=== PATIENT | female | born 1955 | race Caucasian/White ===

== ENCOUNTER 2018-11-07 21:48 | Inpatient (IN) ==
[2018-11-07 21:59] VITALS: BMI 23.7
--- NOTE | 2018-11-07 22:38 | RAD ---
Chest, 2 views Indication: Cough Comparison: None Findings: The cardiac silhouette is unremarkable. There is patchy infiltrate within the right upper and lower lobes. The left lung is essentially clear, aside from a small calcified granuloma at the base. No pleural effusion or pneumothorax. Impression: Right upper and lower lobe infiltrate most compatible with multifocal pneumonia. Recommend radiographic follow-up to resolution. Reported By:
--- NOTE | 2018-11-07 22:54 | DR.URIAD ---
HPI Time Seen Time Seen by Provider: 11/07/18 22:31 PCP Primary Care Physician: DANYEL HPI Comment HPI Comment: PATIENT IS A 63YR OLD WHITE FEMALE WITH HISTORY HYPERTENSION AND COPD IS IN ED WITH INCREASING RESPIRATORY DIASTRESS, PRODUCTIVE COUGHT AND CHEST TIGHTNESS. SHE WAS RUNNING FEVER AND CHILLS AT HOME. TODAY, SHE IS WEAK AND DRAIN OF ENERGY. SHE HAD PNEUMONIA PREVIOUSLY AND THESE SYMPTOMS ARE SIMILAR TO THE PNEUMONIA SYMPTOMS. CHEST PAIN IS TIGHTNESS, NON RADIATIATING. PATIENT HAVE SOME MUSCLE DISCOMFORT. SHE HAS HOME OXYGEN, O2 SAT IS FALLING DOWN TO 80S ON THE 2L /M OXYGEN ON HER IN ED. SHE ALSO HAVE DUO NEB AT HOME. THESE DID NOT HELP HER SYMPTOMS. SHE IS GETTING WORSE. DR. MONTAÑO IN [place], [place] IS PATIENTS PCP. Complaint Chief Complaint Doctors Comments: INCREASING SOB, COUGH AND CHEST TIGHTNESS TOMES 2 DAYS. Chief Complaint:: PT STATES" I HAVE BEEN COUGHING AND I FEEL LIKE I CAN'T GET A DEEP BREATH I NEED A XRAY TO MAKE SURE I DON'T HAVE PNEUMONIA" Reviewed Nurses Notes Reviewed: Yes Source History Provided: Patient Mode of Arrival Mode of Arrival: Ambulatory Timing Onset of Chief Complaint: 11/05/18 Context Recent Treated Infections: None History of Respiratory: None Quality Quality of Cough: Productive and Yellow Rhinorrhea: Green Associated Signs and Symptoms Other Signs and Symptoms: Chills, Cough, Decreased Oral Intake, Fever, Myalgias, Retractions, Shortness of Breath, URI and Wheeze PMH PMH Past Medical History: Yes Past Medical History: COPD and Hypertension Past Surgical History: Yes Surgical History: Appendectomy and Cholecystectomy Family History History of Family Medical Conditions: Yes Family Medical History: Cancer Social History Does patient currently use any type of tobacco product: Yes Have you used tobacco products in the last 12 months: Yes Type of Tobacco Use: Cigarettes Does any household member use tobacco: Yes Alcohol Use: None Do you use any recreational Drugs:: No Lives With: Family Lives Where: Home infectious screening In the last 2 months have you had wt loss of >10#?: NO Have you had fever, night sweats or hemotysis?: No Have you traveled outside the country in the last 6 months?: No Isolation: Standard PE Vital Signs Vitals: Temperature 98.4 F Pulse Rate [Left] 85 Pulse Rate 90 Respiratory Rate 22 Blood Pressure [Right Arm] 167/78 Blood Pressure 150/70 O2 Sat by Pulse Oximetry 91 General Limitations: No Limitations General Appearance: Alert and In Distress Head Head Exam: Normal Inspection, Atraumatic and Normocephalic Eyes Eye exam: PERRL and EOMI; negative Scleral Icterus and Conjunctival Injection ENT ENT Exam: Normal Exam, Normal Oropharynx, Normal External Ear Exam and Mucous Membranes Moist External Ear Exam: Normal External Inspection; negative Mastoid Tenderness, Pain with Movement and External Tenderness TM/Canal Exam: Bilateral: Normal Nose Exam: Normal Nose Exam; negative Sinus Tenderness, Nasal Deviation and Septal Hematoma Mouth Exam: Normal Inspection; negative Lip Swelling, Tongue Elevation and Tongue Swelling Throat Exam: Tonsillar Erythema; negative Tonsillomegaly and Tonsillar Exudate Neck Neck Exam: Normal Inspection and Full ROM; negative Trachea Midline, Tenderness, Meningismus and Lymphadenopathy Chest Chest Inspection: Normal Inspection and Symmetric Chest Wall Rise; negative Tenderness and Rash Respiratory Respiratory Exam: Normal Lung Sounds Bilat and Respiratory Distress Respiratory Exam: Bilateral: Wheezing and Bilateral: Rhonchi, Upper: Wheezing and Lower: Wheezing and Lower: Rhonchi Cardiovascular Cardiovascular Exam: Regular Rate and Normal Rhythm; negative Systolic Murmur, Diastolic Murmur, Rubs and Gallop Abdominal Exam Abdominal Exam: Normal Inspection, Normal Bowel Sounds and Soft; negative Tenderness, Organomegaly and Mass Extremeties Extremities Exam: Normal Inspection and Normal Capillary Refill; negative Tenderness Back Back Exam: Normal Inspection; negative Tenderness, (R) CVA Tenderness, (L) CVA Tenderness, Muscle Spasm, Paraspinal Tenderness and Vertebral Tenderness Neurologic Neurological Exam: Alert, Oriented X3 and CN II-XII Intact; negative Motor Sensory Deficit Psychiatric Psychiatric Exam: Normal Affect and Normal Mood Skin Skin Exam: Warm, Dry, Intact and Normal Color; negative Rash and Erythema MDM Additional Information Additional Information Obtained From: Family and PCP Differential Diagnosis Differential Diagnosis: Pneumonia, Sinsusitis and URI (SINUSITIS, RESP DISTRESS, COPD EXACERBATION.) COURSE Treatment Treatment: SEE ORDERS. 01:00AM : ROCEPHIN IGM IV IN ED. Consultation Consultation Comments: 01:24AM : DISCUSS PATIENT WITH DR. BRYANT. HE WILL ADMIT PATIENT. TIME SPEND ON PHONE 2MIN. PRELIMINARY ORDERS FOR ADMIT ARE DONE ALSO BY ME. Education/Counseling Education/Counseling: Patient Educated On: Diagnosis and Needs for Follow Up ROR Labs Reviewed Laboratory Results Reviewed?: Yes Result Diagrams: 11/07/18 22:42 11/07/18 22:42 Laboratory: WBC 11.3 X10^3/uL (3.6-10.0) H 11/07/18 22:42 RBC 3.68 X10^6/uL (3.5-5.4) 11/07/18 22:42 Hgb 11.7 g/dL (12.0-16.0) L 11/07/18 22:42 Hct 34.3 % (36.0-47.0) L 11/07/18 22:42 MCV 93.4 fL (80.0-100.0) 11/07/18 22:42 MCH 31.9 pg (27.0-34.0) 11/07/18 22:42 MCHC 34.1 g/dL (33.0-35.0) 11/07/18 22:42 RDW 13.8 % (11.6-16.5) 11/07/18 22:42 Plt Count 325 X10^3/uL (150.0-450.0) 11/07/18 22:42 MPV 7.1 fL (7.4-11.0) L 11/07/18 22:42 Neut % (Auto) 78.1 % (42.0-75.0) H 11/07/18 22:42 Lymph % (Auto) 12.4 % (21.0-51.0) L 11/07/18 22:42 [place] % (Auto) 8.5 % (0.0-13.0) 11/07/18 22:42 Eos % (Auto) 0.6 % (0.9-2.9) L 11/07/18 22:42 Baso % (Auto) 0.4 % (0.2-1.0) 11/07/18 22:42 Neut # (Auto) 8.8 x10^3/uL (2.2-4.8) H 11/07/18 22:42 Lymph # (Auto) 1.4 X10^3/uL (1.3-2.9) 11/07/18 22:42 [place] # (Auto) 1.0 x10^3/uL (0.3-0.8) H 11/07/18 22:42 Eos # (Auto) 0.1 x10^3/uL (0.0-0.2) 11/07/18 22:42 Baso # (Auto) 0.0 X10^3/uL (0.0-0.1) 11/07/18 22:42 Absolute Nucleated RBC 0.1 /100WBC 11/07/18 22:42 Sample Site Rbra 11/08/18 01:49 ABG pH 7.430 (7.35-7.45) 11/08/18 01:49 ABG pCO2 46.0 mmHg (35.0-45.0) H 11/08/18 01:49 ABG pO2 69.0 mmHg (80.0-100.0) L 11/08/18 01:49 ABG HCO3 30.5 mmol/L (22-26) H* 11/08/18 01:49 ABG O2 Saturation 94.0 % (90-100) 11/08/18 01:49 ABG Base Excess 5.3 mmol/L (-2.0-2.0) H 11/08/18 01:49 Iain Test Na 11/08/18 01:49 A-a Gradient 73.0 mmHg 11/08/18 01:49 FiO2 28.0 11/08/18 01:49 Blood Gas Comments Destiney abg well-mtf 11/08/18 01:49 Sodium 135 mmol/L (136-145) L 11/07/18 22:42 Corrected Sodium TNP 11/07/18 22:42 Potassium 3.7 mmol/L (3.5-5.1) 11/07/18 22:42 Chloride 97 mmol/L (98-107) L 11/07/18 22:42 Carbon Dioxide 28.7 mmol/L (21-32) 11/07/18 22:42 BUN 15 mg/dL (7-18) 11/07/18 22:42 Creatinine 1.10 mg/dL (0.55-1.02) H 11/07/18 22:42 Est GFR (MDRD) Af Amer > 60 (>60) 11/07/18 22:42 Est GFR (MDRD) Non-Af 54 (>60) L 11/07/18 22:42 Glucose 95 mg/dL (65-99) 11/07/18 22:42 Calcium 9.1 mg/dL (8.5-10.1) 11/07/18 22:42 Corrected Calcium 9.8 mg/dL (8.5-10.1) 11/07/18 22:42 Total Bilirubin 0.60 mg/dL (0.2-1.0) 11/07/18 22:42 AST 14 Units/L (15-37) L 11/07/18 22:42 ALT 12 Units/L (12-78) 11/07/18 22:42 Alkaline Phosphatase 88 Units/L (46-116) 11/07/18 22:42 Total Protein 7.6 g/dL (6.4-8.2) 11/07/18 22:42 Albumin 3.1 g/dL (3.4-5.0) L 11/07/18 22:42 Globulin 4.5 g/dL (2.5-4.5) 11/07/18 22:42 Albumin/Globulin Ratio 0.7 Ratio (1.1-2.1) L 11/07/18 22:42 XRAY XRAY Interpreted by: Radiologist XRAY Findings: REPORT ON RECORD NOTED AND DISCUSS WITH PATIENT.
[2018-11-07 23:10] LABS: BASOPHILS % (AUTO) 0.4 % (0.2-1.0); EOSINOPHILS # (AUTO) 0.1 x10^3/uL (0.0-0.2); EOSINOPHILS % (AUTO) 0.6 % (0.9-2.9); HEMATOCRIT 34.3 % (36.0-47.0); HEMOGLOBIN 11.7 g/dL (12.0-16.0); LYMPHOCYTES # (AUTO) 1.4 X10^3/uL (1.3-2.9); LYMPHOCYTES % (AUTO) 12.4 % (21.0-51.0); MEAN CORPUSCULAR HEMOGLOBIN 31.9 pg (27.0-34.0); MEAN CORPUSCULAR HGB CONC 34.1 g/dL (33.0-35.0); MEAN CORPUSCULAR VOLUME 93.4 fL (80.0-100.0); MEAN PLATELET VOLUME 7.1 fL (7.4-11.0); MONOCYTES % (AUTO) 8.5 % (0.0-13.0); NEUTROPHILS # (AUTO) 8.8 x10^3/uL (2.2-4.8); NEUTROPHILS % (AUTO) 78.1 % (42.0-75.0); PLATELET COUNT 325 X10^3/uL (150.0-450.0); RED BLOOD COUNT 3.68 X10^6/uL (3.5-5.4); RED CELL DISTRIBUTION WIDTH 13.8 % (11.6-16.5); WHITE BLOOD COUNT 11.3 X10^3/uL (3.6-10.0)
[2018-11-07 23:20] LABS: ALANINE AMINOTRANSFERASE 12 Units/L (12-78); ALBUMIN 3.1 g/dL (3.4-5.0); ALKALINE PHOSPHATASE 88 Units/L (46-116); ASPARTATE AMINO TRANSFERASE 14 Units/L (15-37); BLOOD UREA NITROGEN 15 mg/dL (7-18); CALCIUM 9.1 mg/dL (8.5-10.1); CARBON DIOXIDE 28.7 mmol/L (21-32); CHLORIDE 97 mmol/L (98-107); COR CA(FOR HYPOALB) 9.8 mg/dL (8.5-10.1); SODIUM 135 mmol/L (136-145); TOTAL PROTEIN 7.6 g/dL (6.4-8.2); eGFR NON BLACK RACES 54 (>60)
[2018-11-08] MEDS ORDERED: ROCEPHIN VIAL 1 GRAM IVP ONE (00:59)
[2018-11-08] MEDS ORDERED: ROCEPHIN VIAL 1 GRAM ONE (01:08)
[2018-11-08] MEDS ORDERED: TUSSIONEX PENNKINETIC SUSP PO PRN (01:41)
[2018-11-08 01:53] LABS: ABG BASE EXCESS 5.3 mmol/L (-2.0-2.0)
[2018-11-08 01:54] LABS: ABG HCO3 30.5 mmol/L (22-26)
[2018-11-08] MEDS ORDERED: NS 1/2 1000 ML IV 1,000 ML ONE ×2 (02:08→14:06)
[2018-11-08] MEDS: NS 1/2 1000 ML IV 1,000 ML IV SCH ×3 (02:17→16:43)
[2018-11-08] MEDS ORDERED: TYLENOL 325 MG TAB PO ONE ×2 (02:36→02:38)
[2018-11-08] MEDS ORDERED: LEVAQUIN PREMIX IV 750 MG 750 MG/150 ML BAG IV ONE (03:28)
[2018-11-08] MEDS ORDERED: PREVNAR 13 IM ONE (04:04)
[2018-11-08] MEDS: DUONEB 0.5 MG/3 MG NEB SCH ×5 (05:22→20:46)
[2018-11-08] MEDS: FORTAZ or TAZICEF VIAL INJ IVP SCH ×2 (05:37→17:14)
[2018-11-08 06:15] LABS: BASOPHILS # (AUTO) 0.1 X10^3/uL (0.0-0.1); BASOPHILS % (AUTO) 0.6 % (0.2-1.0); EOSINOPHILS # (AUTO) 0.1 x10^3/uL (0.0-0.2); EOSINOPHILS % (AUTO) 0.7 % (0.9-2.9); HEMATOCRIT 31.5 % (36.0-47.0); HEMOGLOBIN 10.8 g/dL (12.0-16.0); LYMPHOCYTES # (AUTO) 1.6 X10^3/uL (1.3-2.9); LYMPHOCYTES % (AUTO) 15.3 % (21.0-51.0); MEAN CORPUSCULAR HEMOGLOBIN 31.9 pg (27.0-34.0); MEAN CORPUSCULAR HGB CONC 34.2 g/dL (33.0-35.0); MEAN CORPUSCULAR VOLUME 93.3 fL (80.0-100.0); MEAN PLATELET VOLUME 6.7 fL (7.4-11.0); MONOCYTES # (AUTO) 0.8 x10^3/uL (0.3-0.8); MONOCYTES % (AUTO) 7.6 % (0.0-13.0); NEUTROPHILS % (AUTO) 75.8 % (42.0-75.0); PLATELET COUNT 315 X10^3/uL (150.0-450.0); RED BLOOD COUNT 3.38 X10^6/uL (3.5-5.4); RED CELL DISTRIBUTION WIDTH 13.2 % (11.6-16.5); WHITE BLOOD COUNT 10.5 X10^3/uL (3.6-10.0)
[2018-11-08 06:34] LABS: ALANINE AMINOTRANSFERASE 11 Units/L (12-78); ALBUMIN 2.7 g/dL (3.4-5.0); ALKALINE PHOSPHATASE 80 Units/L (46-116); ASPARTATE AMINO TRANSFERASE 15 Units/L (15-37); BLOOD UREA NITROGEN 15 mg/dL (7-18); CALCIUM 8.8 mg/dL (8.5-10.1); CARBON DIOXIDE 30.1 mmol/L (21-32); CHLORIDE 97 mmol/L (98-107); COR CA(FOR HYPOALB) 9.8 mg/dL (8.5-10.1); COR NA(FOR HYPERGLY) 133 mmol/L (136-145); CREATININE 1.06 mg/dL (0.55-1.02); SODIUM 133 mmol/L (136-145); eGFR NON BLACK RACES 56 (>60)
[2018-11-08] MEDS ORDERED: POTASSIUM CHL 60 MEQ/NS 0.45% 500 ML IV PRN (07:27)
[2018-11-08] MEDS ORDERED: POTASSIUM CHL 40 MEQ/NS 0.45% 500 ML IV PRN (07:27)
[2018-11-08] MEDS ORDERED: MICRO K EXTEN CAP 10 MEQ PO PRN (07:27)
[2018-11-08] MEDS ORDERED: POTASSIUM CHLORIDE LIQ 20 MEQ UDC PO PRN (07:27)
[2018-11-08] MEDS ORDERED: K-RIDER 10 MEQ/NS 100 ML 10 MEQ/100 ML BAG IV PRN (07:27)
[2018-11-08] MEDS ORDERED: KLOR-CON PO PRN (07:27)
[2018-11-08] MEDS ORDERED: K-DUR TAB 20 MEQ PO PRN (07:27)
[2018-11-08] MEDS ORDERED: MAGNESIUM SULFATE 1 GRAM/100 mL PREMIX 1 GM/100 ML BAG IV PRN (07:27)
[2018-11-08] MEDS: ROBITUSSIN DM PO SCH ×4 (08:43→20:41)
[2018-11-08] MEDS ORDERED: LEVAQUIN PREMIX IV 750 MG 750 MG/150 ML BAG IV SCH (09:00)
[2018-11-08] MEDS: MAG-OX TAB PO SCH (09:41)
[2018-11-08] MEDS ORDERED: PHARMACY CONSULT - DOSE _____ XX SCH (10:00)
[2018-11-08] MEDS: LOVENOX INJ 40 MG SYR SC SCH (10:09)
[2018-11-08] MEDS: NORCO 10/325 TAB PO PRN (20:40)
[2018-11-08] MEDS: COLACE CAP 100 MG PO SCH (20:44)
[2018-11-09] MEDS: DUONEB 0.5 MG/3 MG NEB SCH ×6 (01:40→20:05)
[2018-11-09 05:19] LABS: BASOPHILS % (AUTO) 0.3 % (0.2-1.0); EOSINOPHILS # (AUTO) 0.1 x10^3/uL (0.0-0.2); EOSINOPHILS % (AUTO) 0.7 % (0.9-2.9); HEMATOCRIT 29.2 % (36.0-47.0); LYMPHOCYTES # (AUTO) 1.8 X10^3/uL (1.3-2.9); LYMPHOCYTES % (AUTO) 21.1 % (21.0-51.0); MEAN CORPUSCULAR HEMOGLOBIN 32.4 pg (27.0-34.0); MEAN CORPUSCULAR HGB CONC 34.2 g/dL (33.0-35.0); MEAN CORPUSCULAR VOLUME 94.9 fL (80.0-100.0); MEAN PLATELET VOLUME 7.2 fL (7.4-11.0); MONOCYTES # (AUTO) 0.8 x10^3/uL (0.3-0.8); MONOCYTES % (AUTO) 9.3 % (0.0-13.0); NEUTROPHILS # (AUTO) 5.8 x10^3/uL (2.2-4.8); NEUTROPHILS % (AUTO) 68.6 % (42.0-75.0); PLATELET COUNT 338 X10^3/uL (150.0-450.0); RED BLOOD COUNT 3.08 X10^6/uL (3.5-5.4); RED CELL DISTRIBUTION WIDTH 13.6 % (11.6-16.5); WHITE BLOOD COUNT 8.5 X10^3/uL (3.6-10.0)
[2018-11-09 05:35] LABS: ALANINE AMINOTRANSFERASE 14 Units/L (12-78); ALBUMIN 2.5 g/dL (3.4-5.0); ALKALINE PHOSPHATASE 69 Units/L (46-116); ASPARTATE AMINO TRANSFERASE 15 Units/L (15-37); BLOOD UREA NITROGEN 12 mg/dL (7-18); CALCIUM 8.6 mg/dL (8.5-10.1); CARBON DIOXIDE 29.4 mmol/L (21-32); CHLORIDE 100 mmol/L (98-107); COR CA(FOR HYPOALB) 9.8 mg/dL (8.5-10.1); MAGNESIUM 1.9 mg/dL (1.7-2.9); SODIUM 138 mmol/L (136-145); TOTAL PROTEIN 6.5 g/dL (6.4-8.2); eGFR NON BLACK RACES 60 (>60)
[2018-11-09] MEDS ORDERED: NS 1/2 1000 ML IV 1,000 ML ONE ×2 (06:23→20:22)
[2018-11-09] MEDS: NS 1/2 1000 ML IV 1,000 ML IV SCH ×2 (06:30→20:30)
[2018-11-09] MEDS: MAG-OX TAB PO SCH (06:30)
[2018-11-09] MEDS: FORTAZ or TAZICEF VIAL INJ IVP SCH ×2 (06:30→17:00)
--- NOTE | 2018-11-09 06:36 | RAD ---
HISTORY: Follow-up pneumonia Study: Chest AP portable Comparison: 11/07/2018 Findings: The heart is within normal limits in size. The chaparrita are normal. The lungs are well inflated. There is a small residual peripheral right upper lobe infiltrate present. The right lower lobe and left lung are clear with the exception of minimal subsegmental atelectasis in the left costophrenic angle. No pleural effusions are identified. The bony thorax is unremarkable. IMPRESSION: Small residual peripheral right upper lobe infiltrate The remainder of the lung garcia are now clear Reported By:
[2018-11-09] MEDS ORDERED: MAG-OX TAB PO SCH (07:00)
--- NOTE | 2018-11-09 08:45 | DR.H&P ---
H&P - History & Physical for Day of: H&P Date: 11/08/18 - Chief Complaint Chief Complaint: COUGH, SOB, FEVER - History of Present Illness History of Present Illness: IS A 63 YEAR OLD WHITE FEMALE WHO PRESENTED TO THE ER WITH COMPLAINTS OF COUGH, SHORTNESS OF BREATH, AND CHEST TIGHTNESS FOR THE PAST TWO DAYS. SHE REPORTS THAT SYMPTOMS HAVE INCREASINGLY WORSENED. COUGH IS PRODUCTIVE. SHE ALSO REPORTS FEVER AND CHILLS AT HOME TODAY. HE REPORTS THAT HER OXYGEN SATURATION DROPPED TO THE 80S ON 2L/MIN OXYGEN VIA NASAL CANNULA AT HOME. SHE ALSO REPORTS USE OF DUONEBS WITHOUT IMPROVEMENT. ON ARRIVAL, VITALS WERE 98.4-90-22-96%-150/70. LABS WERE OBTAINED. ABNORMAL LAB VALUES INCLUDE THE FOLLOWING: WBC 11.3, HGB 11.7, HCT 34.3, SODIUM 135, CHLORIDE 97, CREATININE 1.10, AST 14, ALBUMIN 3.1. ABG REVEALED PH 7.430, PC02 46.0, P02 69.0, HC03 30.5, 02 SATURATION 94.0, BASE EXCESS 5.3. SPUTUM AND BLOOD CULTURES OBTAINED AND ARE PENDING. CHEST XRAY REVEALED: Right upper and lower lobe infiltrate most compatible with multifocal pneumonia. SHE WAS GIVEN LEVAQUIN 750MG IV X 1 DOSE, ROCEPHIN 1G IV X 1 DOSE, AND ADMITTED TO THE HOSPITAL FOR FURTHER EVALUATION AND TREATMENT OF PNEUMONIA. SHE WAS STARTED ON 1/2NS AT 75ML/HR, RESPIRATORY TREATMENTS Q4H, FORTAZ 1G IV Q12H, ROBITUSSIN, AND TUSSIONEX. WE PLAN TO FOLLOW-UP WITH AM LABS AND CONTINUE TO MONITOR. - Past Medical History Past Medical History: Hypertension, COPD - Past Surgical History Surgical History: Appendectomy, Cholecystectomy - Family History Family Medical History: Cancer - Social History Does patient currently use any type of tobacco product: Yes Have you used tobacco products in the last 12 months: Yes Type of Tobacco Use: Cigarettes Does any household member use tobacco: Yes Alcohol Use: None Drug Use: None - Medications Home Medications: No Known Drug Allergies Allergy (Verified 11/07/18 21:56) CONTINUE taking the following medications carisoprodol 350 mg PO TID 11/08/18 [History] diazepam 5 mg PO TID 11/08/18 [History] hydrochlorothiazide 25 mg PO DAILY 11/08/18 [History] hydrocodone-acetaminophen 1 tab PO BID 11/08/18 [History] lisinopril 10 mg PO BID 11/08/18 [History] omeprazole 40 mg PO DAILY 11/08/18 [History] - Review of Systems Constitutional: Fever, Chills Eyes: No Symptoms Reported ENT: No Symptoms Reported Respiratory: Cough, Shortness of Breath, SOB with Excertion, Sputum Cardiovascular: No Symptoms Reported Gastrointestinal: No Symptoms Reported Genitourinary: No Symptoms Reported Musculoskeletal: No Symptoms Reported Skin: No Symptoms Reported Neurological: Weakness - Physical Exam Vital Signs: Temperature 99.8 F Pulse Rate [Left] 91 Pulse Rate 89 Respiratory Rate 21 Blood Pressure [Left Arm] 138/69 Blood Pressure [Right Arm] 136/59 Blood Pressure 150/70 O2 Sat by Pulse Oximetry 96 Oriented: Normal Eyes: Normal Ear: Normal Nose: Normal Throat: Normal Respiratory: Wheezes Throughout Cardiovascular: Normal. negative: S3, S4, Murmur : Normal Auscultation: Bowel Sounds: Normal Palpation: Normal Tenderness: Normal Skin: Normal Musculoskeletal: Normal Psychiatric: Normal Mood Description: Calm Affect: Normal Speech Pattern: Clear - Assessment/Plan (1) Multifocal pneumonia Status: Acute Plan: IV ANTIBIOTICS, RESPIRATORY TREATMENTS, SUPPLEMENTAL OXYGEN, TUSSIONEX, ROBITUSSIN, CONTINUE TO MONITOR - Allergies Allergies/Adverse Reactions: Allergies Allergy/AdvReac Type Severity Reaction Status Date / Time No Known Drug Allergies Allergy Verified 11/07/18 21:56
[2018-11-09] MEDS: ROBITUSSIN DM PO SCH ×4 (09:16→20:31)
[2018-11-09] MEDS: LOVENOX INJ 40 MG SYR SC SCH (09:16)
[2018-11-09] MEDS: NORCO 10/325 TAB PO PRN (16:29)
[2018-11-09] MEDS: SOMA TAB 350 MG PO SCH ×2 (16:32→21:35)
[2018-11-09] MEDS: VALIUM PO SCH ×2 (16:33→21:35)
[2018-11-09] MEDS: ZESTRIL TAB 10 MG PO SCH ×2 (16:33→20:30)
[2018-11-09] MEDS: PriLOSEC PO SCH (16:34)
[2018-11-09] MEDS: COLACE CAP 100 MG PO SCH (20:30)
[2018-11-10] MEDS: DUONEB 0.5 MG/3 MG NEB SCH ×4 (01:12→12:19)
[2018-11-10 06:17] LABS: BASOPHILS % (AUTO) 0.4 % (0.2-1.0); EOSINOPHILS # (AUTO) 0.2 x10^3/uL (0.0-0.2); EOSINOPHILS % (AUTO) 2.1 % (0.9-2.9); HEMATOCRIT 28.1 % (36.0-47.0); HEMOGLOBIN 9.6 g/dL (12.0-16.0); LYMPHOCYTES # (AUTO) 1.7 X10^3/uL (1.3-2.9); LYMPHOCYTES % (AUTO) 21.8 % (21.0-51.0); MEAN CORPUSCULAR HEMOGLOBIN 32.3 pg (27.0-34.0); MEAN CORPUSCULAR HGB CONC 34.2 g/dL (33.0-35.0); MEAN CORPUSCULAR VOLUME 94.6 fL (80.0-100.0); MEAN PLATELET VOLUME 7.1 fL (7.4-11.0); MONOCYTES # (AUTO) 0.7 x10^3/uL (0.3-0.8); MONOCYTES % (AUTO) 9.2 % (0.0-13.0); NEUTROPHILS # (AUTO) 5.3 x10^3/uL (2.2-4.8); NEUTROPHILS % (AUTO) 66.5 % (42.0-75.0); PLATELET COUNT 326 X10^3/uL (150.0-450.0); RED BLOOD COUNT 2.97 X10^6/uL (3.5-5.4); RED CELL DISTRIBUTION WIDTH 13.5 % (11.6-16.5); WHITE BLOOD COUNT 7.9 X10^3/uL (3.6-10.0)
[2018-11-10] MEDS: FORTAZ or TAZICEF VIAL INJ IVP SCH (06:21)
[2018-11-10] MEDS: SOMA TAB 350 MG PO SCH (06:21)
[2018-11-10] MEDS: VALIUM PO SCH (06:22)
[2018-11-10] MEDS: MAG-OX TAB PO SCH (06:22)
[2018-11-10 06:32] LABS: ALANINE AMINOTRANSFERASE 13 Units/L (12-78); ALBUMIN 2.4 g/dL (3.4-5.0); ALKALINE PHOSPHATASE 69 Units/L (46-116); ASPARTATE AMINO TRANSFERASE 15 Units/L (15-37); BLOOD UREA NITROGEN 14 mg/dL (7-18); CALCIUM 8.7 mg/dL (8.5-10.1); CARBON DIOXIDE 27.1 mmol/L (21-32); CHLORIDE 100 mmol/L (98-107); COR NA(FOR HYPERGLY) 137 mmol/L (136-145); CREATININE 1.01 mg/dL (0.55-1.02); SODIUM 137 mmol/L (136-145); TOTAL PROTEIN 6.4 g/dL (6.4-8.2); eGFR NON BLACK RACES 59 (>60)
[2018-11-10] MEDS: ROBITUSSIN DM PO SCH (08:24)
[2018-11-10] MEDS: PriLOSEC PO SCH (08:24)
[2018-11-10] MEDS: LOVENOX INJ 40 MG SYR SC SCH (08:25)
[2018-11-10] MEDS: ZESTRIL TAB 10 MG PO SCH (08:27)
[2018-11-10] MEDS ORDERED: LEVAQUIN PREMIX IV 750 MG 750 MG/150 ML BAG IV SCH (09:00)
--- NOTE | 2018-11-10 09:47 | RAD ---
History: Shortness of breath Study: AP chest Comparison: Yesterday Findings: There is further improvement in a minimal residual infiltrate peripherally laterally in the right upper lobe. There is mild chronic interstitial lung disease. The heart size is normal. There is no pleural effusion. Impression: Mild residual right upper lobe peripheral lateral pneumonia Reported By:
[2018-11-10 11:32] VITALS: BP 120/69
== END 2018-11-10 12:35 | disposition home or self-care (01) | DRG 195 ==
LOC: ER 21:51 → ICU 11-08 01:41
PROVIDERS: ADMIT Internal Medicine; ATTEND Internal Medicine
DX: J44.9 Chronic obstructive pulmonary disease, unspecified; I10 Essential (primary) hypertension; R06.02 Shortness of breath; R53.1 Weakness; J18.8 Other pneumonia, unspecified organism; R06.03 Acute respiratory distress; R07.89 Other chest pain
CPT/HCPCS: 36415; 36600; 71010; 71020; 71045; 71046; 80053; 82803; 83735; 85025; 87040; 87070; 87205; 94640; 96365; 96374; 96375; 99284; A4222; 90670; J0696; J0713; J1650; J1956; J3490; J7620

== ENCOUNTER 2020-11-24 10:04 | Inpatient (IN) ==
[2020-11-24 10:09] VITALS: BMI 26.4
[2020-11-24 10:45] LABS: BASOPHILS # (AUTO) 0.1 X10^3/uL (0.0-0.1); BASOPHILS % (AUTO) 0.7 % (0.2-1.0); EOSINOPHILS # (AUTO) 0.1 x10^3/uL (0.0-0.2); EOSINOPHILS % (AUTO) 0.8 % (0.9-2.9); HEMATOCRIT 37.5 % (36.0-47.0); HEMOGLOBIN 12.7 g/dL (12.0-16.0); LYMPHOCYTES # (AUTO) 1.4 X10^3/uL (1.3-2.9); LYMPHOCYTES % (AUTO) 19.3 % (21.0-51.0); MEAN CORPUSCULAR HEMOGLOBIN 33.3 pg (27.0-34.0); MEAN CORPUSCULAR HGB CONC 33.8 g/dL (33.0-35.0); MEAN CORPUSCULAR VOLUME 98.5 fL (80.0-100.0); MEAN PLATELET VOLUME 7.6 fL (7.4-11.0); MONOCYTES # (AUTO) 0.3 x10^3/uL (0.3-0.8); MONOCYTES % (AUTO) 4.6 % (0.0-13.0); NEUTROPHILS # (AUTO) 5.4 x10^3/uL (2.2-4.8); NEUTROPHILS % (AUTO) 74.6 % (42.0-75.0); PLATELET COUNT 290 X10^3/uL (150.0-450.0); RED BLOOD COUNT 3.81 X10^6/uL (3.5-5.4); WHITE BLOOD COUNT 7.3 X10^3/uL (3.6-10.0)
--- NOTE | 2020-11-24 10:56 | CT ---
HISTORYStroke protocol left-sided weakness x1 daySTUDYCT brain without contrastCOMPARISONNone availableTECHNIQUEMultiple axial images of the brain were obtained from the skull base to the vertex [without] administration of IV contrast.Dose reduction techniques including Automated Exposure Control (AEC) and adjustment of mA and kV were utlized.FINDINGS[No acute intraparenchymal hemorrhage or mass can be identified.] [No extra-axial fluid collections are seen.] [Small vessel ischemic changes and age-appropriate atrophy are noted. There is an indeterminate low-attenuation area in the right basal ganglia which could represent subacute stroke. This could be followed up with MRI for further assessment. [The ventricular system is symmetric and nondilated.] [The extracranial structures are grossly unremarkable.]IMPRESSIONScattered small vessel ischemic changes with age indeterminate hypodense area in the right basal ganglia for which follow-up MRI is recommended as this could represent a subacute stroke.Electronically signed by: JOSESITO HALL (November 24, 2020 10:53:35)
[2020-11-24 11:06] LABS: ALANINE AMINOTRANSFERASE 13 Units/L (12-78); ALBUMIN 3.4 g/dL (3.4-5.0); ALKALINE PHOSPHATASE 104 Units/L (46-116); ASPARTATE AMINO TRANSFERASE 17 Units/L (15-37); BLOOD UREA NITROGEN 18 mg/dL (7-18); CALCIUM 8.6 mg/dL (8.5-10.1); CARBON DIOXIDE 30.9 mmol/L (21-32); CHLORIDE 103 mmol/L (98-107); COR NA(FOR HYPERGLY) 140 mmol/L (136-145); CREATINE KINASE 64 Units/L (26-192); CREATININE 1.11 mg/dL (0.55-1.02); SODIUM 140 mmol/L (136-145); TOTAL PROTEIN 7.5 g/dL (6.4-8.2); TROPONIN I < 0.02 ng/mL (0-1.5); eGFR NON BLACK RACES 53 (>60)
[2020-11-24 11:12] LABS: BILIRUBIN,URINE NEGATIVE (NEGATIVE); BLOOD/HEMOGLOBIN,URINE 3+ (NEGATIVE); GLUCOSE, URINE NEGATIVE (NEGATIVE); KETONES,URINE NEGATIVE (NEGATIVE); LEUKOCYTE ESTERASE ,URINE 1+ (NEGATIVE); NITRITES,URINE NEGATIVE (NEGATIVE); PROTEIN,URINE NEGATIVE (NEGATIVE); UROBILINOGEN,URINE NORMAL (NORMAL)
[2020-11-24 11:26] LABS: APPEARANCE,URINE SLIGHTLY HAZY (CLEAR); BACTERIA,URINE TRACE /HPF (NEGATIVE); COLOR,URINE YELLOW (YELLOW); SQUAMOUS EPITHELIAL CELL,UR MODERATE /HPF (NEGATIVE)
[2020-11-24] MEDS ORDERED: NORMODYNE INJ 20 MG VIAL ONE (11:26)
[2020-11-24] MEDS: NORMODYNE INJ 20 MG VIAL IVP PRN ×2 (11:32→11:53)
[2020-11-24] MEDS ORDERED: ASPIRIN ONE (11:55)
[2020-11-24] MEDS: ASPIRIN PO SCH (11:57)
--- NOTE | 2020-11-24 12:01 | DR.GENAD ---
HPI Time Seen Time Seen by Provider: 11/24/20 10:19 HPI Comment HPI Comment: new onset weakness w left facial droop and left UE weakness began at some point las nite. unsrue of onset. Complaint/Symptoms Chief Complaint:: PT. STATES LAST NIGHT SHE WAS TRYING TO GET OUT OF THE BED TO GO TO THE BATHROOM AND PT. WAS HAVING A DIFFICULT TIME TRYING TO GET UP. PT. C/O LEFT ARM WEAKNESS/NUMBNESS AND FEELING HEAVY. PT. STATES "MY SPEECH IS SLURRED A LITTLE BIT." PT. DENIES PAIN. PT. UNSURE OF TIME OF EVENT. PT. HAS NOT HAD HER B/P MEDICATION THIS AM./ COVID-19 Coronavirus risk:travel/contact w/high risk person: No Has patient experienced Coronavirus symptoms: No Nurses notes reviewed Nurses Notes Review: Yes Source History Provided: Patient Mode of Arrival Mode of Arrival: Ambulatory Timing Onset of Chief Complaint: 11/23/20 PMH PMH Past Medical History: Yes Past Medical History: COPD and Hypertension Past Surgical History: Yes Surgical History: Appendectomy and Cholecystectomy Family History History of Family Medical Conditions: Yes Family Medical History: Cancer Social History Does patient currently use any type of tobacco product: Yes Have you used tobacco products in the last 12 months: Yes Type of Tobacco Use: Cigarettes Does any household member use tobacco: No Alcohol Use: None Do you use any recreational Drugs:: No Lives With: Alone Lives Where: Home Travel Risk Coronavirus risk:travel/contact w/high risk person: No Has patient experienced Coronavirus symptoms: No Infectious screening In the last 2 months have you had wt loss of >10#?: NO Have you had fever, night sweats or hemotysis?: No Have you traveled outside the country in the last 6 months?: No Isolation: Standard ROS Review of Systems Constitutional: See HPI Eyes: No Symptoms Reported ENTM: No Symptoms Reported Respiratoy: No Symptoms Reported Cardiovascular: No Symptoms Reported Gastrointestinal/Abdominal: No Symptoms Reported Genitourinary: No Symptoms Reported Neurological: No Symptoms Reported Musculoskeletal: No Symptoms Reported All Other Systems: Reviewed and Negative PE Vital Signs Vitals: Temperature 98.5 F Pulse Rate [Left] 68 Pulse Rate 68 Respiratory Rate 17 Blood Pressure [Left Arm] 138/69 Blood Pressure [Right Arm] 190/88 Blood Pressure 175/84 O2 Sat by Pulse Oximetry 95 General Limitations: No Limitations General Appearance: Alert and Other (mild slurring speech noted) Head Head Exam: Normal Inspection, Atraumatic and Normocephalic Eyes Eye exam: Normal Appearance, PERRL and EOMI ENT ENT Exam: Normal Exam External Ear Exam: Normal External Inspection Mouth Exam: Normal Inspection and Other (mild facial droop left mouth) Throat Exam: Normal Inspection Neck Neck Exam: Normal Inspection Chest Chest Inspection: Normal Inspection Respiratory Respiratory Exam: Normal Lung Sounds Bilat Cardiovascular Cardiovascular Exam: Regular Rate Abdominal Exam Abdominal Exam: Normal Inspection Extremities Extremities Exam: Normal Inspection and Full ROM Back Back Exam: Normal Inspection Neurologic Neurological Exam: Alert, Oriented X3 and Other (mild deficit to left arm- drift noted. LLE intact) Skin Skin Exam: Warm, Dry and Intact ROR Labs Reviewed Laboratory Results Reviewed?: Yes Result Diagrams: 11/24/20 10:36 11/24/20 10:36 Laboratory: WBC 7.3 X10^3/uL (3.6-10.0) 11/24/20 10:36 RBC 3.81 X10^6/uL (3.5-5.4) 11/24/20 10:36 Hgb 12.7 g/dL (12.0-16.0) 11/24/20 10:36 Hct 37.5 % (36.0-47.0) 11/24/20 10:36 MCV 98.5 fL (80.0-100.0) 11/24/20 10:36 MCH 33.3 pg (27.0-34.0) 11/24/20 10:36 MCHC 33.8 g/dL (33.0-35.0) 11/24/20 10:36 RDW 15.0 % (11.6-16.5) 11/24/20 10:36 Plt Count 290 X10^3/uL (150.0-450.0) 11/24/20 10:36 MPV 7.6 fL (7.4-11.0) 11/24/20 10:36 Neut % (Auto) 74.6 % (42.0-75.0) 11/24/20 10:36 Lymph % (Auto) 19.3 % (21.0-51.0) L 11/24/20 10:36 [place] % (Auto) 4.6 % (0.0-13.0) 11/24/20 10:36 Eos % (Auto) 0.8 % (0.9-2.9) L 11/24/20 10:36 Baso % (Auto) 0.7 % (0.2-1.0) 11/24/20 10:36 Neut # (Auto) 5.4 x10^3/uL (2.2-4.8) H 11/24/20 10:36 Lymph # (Auto) 1.4 X10^3/uL (1.3-2.9) 11/24/20 10:36 [place] # (Auto) 0.3 x10^3/uL (0.3-0.8) 11/24/20 10:36 Eos # (Auto) 0.1 x10^3/uL (0.0-0.2) 11/24/20 10:36 Baso # (Auto) 0.1 X10^3/uL (0.0-0.1) 11/24/20 10:36 Absolute Nucleated RBC 0.1 /100WBC 11/24/20 10:36 Sodium 140 mmol/L (136-145) 11/24/20 10:36 Corrected Sodium 140 mmol/L (136-145) 11/24/20 10:36 Potassium 4.3 mmol/L (3.5-5.1) 11/24/20 10:36 Chloride 103 mmol/L (98-107) 11/24/20 10:36 Carbon Dioxide 30.9 mmol/L (21-32) 11/24/20 10:36 BUN 18 mg/dL (7-18) 11/24/20 10:36 Creatinine 1.11 mg/dL (0.55-1.02) H 11/24/20 10:36 Est GFR (MDRD) Af Amer > 60 (>60) 11/24/20 10:36 Est GFR (MDRD) Non-Af 53 (>60) L 11/24/20 10:36 Glucose 113 mg/dL (65-99) H 11/24/20 10:36 Calcium 8.6 mg/dL (8.5-10.1) 11/24/20 10:36 Corrected Calcium TNP 11/24/20 10:36 Total Bilirubin 0.30 mg/dL (0.2-1.0) 11/24/20 10:36 AST 17 Units/L (15-37) 11/24/20 10:36 ALT 13 Units/L (12-78) 11/24/20 10:36 Alkaline Phosphatase 104 Units/L (46-116) 11/24/20 10:36 Creatine Kinase 64 Units/L (26-192) 11/24/20 10:36 Troponin I < 0.02 ng/mL (0-1.5) 11/24/20 10:36 Total Protein 7.5 g/dL (6.4-8.2) 11/24/20 10:36 Albumin 3.4 g/dL (3.4-5.0) 11/24/20 10:36 Globulin 4.1 g/dL (2.5-4.5) 11/24/20 10:36 Albumin/Globulin Ratio 0.8 Ratio (1.1-2.1) L 11/24/20 10:36 Specimen Type Clean catch urine 11/24/20 10:58 Urine Color Yellow (YELLOW) 11/24/20 10:58 Urine Appearance Slightly hazy (CLEAR) 11/24/20 10:58 Urine pH 6.0 (5.0 - 8.0) 11/24/20 10:58 Ur Specific [place] 1.015 (1.000-1.030) 11/24/20 10:58 Urine Protein Negative (NEGATIVE) 11/24/20 10:58 Urine Glucose (UA) Negative (NEGATIVE) 11/24/20 10:58 Urine Ketones Negative (NEGATIVE) 11/24/20 10:58 Urine Occult Blood 3+ (NEGATIVE) 11/24/20 10:58 Urine Nitrite Negative (NEGATIVE) 11/24/20 10:58 Urine Bilirubin Negative (NEGATIVE) 11/24/20 10:58 Urine Urobilinogen Normal (NORMAL) 11/24/20 10:58 Ur Leukocyte Esterase 1+ (NEGATIVE) 11/24/20 10:58 Urine RBC 3-5 /HPF (0-3) A 11/24/20 10:58 Urine WBC 0-2 /HPF (0-5) 11/24/20 10:58 Ur Squamous Epith Cells Moderate /HPF (NEGATIVE) 11/24/20 10:58 Urine Bacteria Trace /HPF (NEGATIVE) 11/24/20 10:58 Ur Culture Indicated? No/not indicated 11/24/20 10:58 Other Results Comments: CT shows small hypodense lesion basal ganglia. recommend MRI. no hemorrhage. EKG Jackson: Normal Rhythm: NSR Opioid Opioid Risk Tool Age (Foreign box if 16-45): No History of Preadolescent Sexual Abuse: No Total: 0 Total Score Risk Category: Low Risk Copyright: Azael NOVAK predicting aberrant behaviors Procedures Procedure Comments Procedures: accepted dr santiago Diagnosis Discharge Problem: TIA (transient ischemic attack)
[2020-11-24] MEDS: NORCO 10/325 TAB PO SCH ×2 (14:52→21:27)
[2020-11-24] MEDS: PriLOSEC PO SCH (14:53)
[2020-11-24] MEDS ORDERED: ZESTRIL TAB 10 MG PO SCH ×2 (15:00→21:00)
--- NOTE | 2020-11-24 16:21 | MRI ---
HISTORYLeft-sided weakness for 1 day, lacunar infarct in right basal gangliaSTUDYMRI brain without and with IV contrastCOMPARISONCT from same dayTECHNIQUEMultiplanar multi-sequence MRI of the brain was obtained prior to and following administration of IV contrast. 16 cc MultiHance IV contrast.FINDINGSThe cerebellar tonsils are normally positioned. Pituitary gland is normal in size. [Moderate diffuse volume loss is seen in the brain with compensatory enlargement of the ventricular system.]There is restricted diffusion corresponding to the area of decreased density in the right gu radiata and right external capsule on CT. This is consistent with recent CVA. There is increased T2 signal within the CVA. Other prominent chronic small vessel ischemic changes are seen in the supratentorial white matter. [No evidence of intracranial hemorrhage.]Paranasal sinuses and mastoid air cells appear clear. Benign calcification is seen of the pineal glandSmall enhancing focus superior to the left frontal sinus in the frontal bone measures 8 by 5 mm it has an appearance on CT suggesting hemangioma. No other enhancing bony foci are seen. There is no abnormal enhancement of the brain parenchyma or meninges.IMPRESSIONRecent CVA in the right gu radiata and right external capsule without evidence of hemorrhagic transformation or mass effect.Prominent chronic small vessel ischemic changes are seen in the white, also.Electronically signed by: Elkin Greenwood (November 24, 2020 16:19:51)
--- NOTE | 2020-11-24 17:06 | DR.H&P ---
H&P History & Physical for Day of: H&P Date: 11/24/20 Chief Complaint Chief Complaint: slurred speech, weakness Allergies Allergies Allergy/AdvReac Type Severity Reaction Status Date / Time No Known Drug Allergies Allergy Verified 11/24/20 10:09 History of Present Illness History of Present Illness: Ms. Shah is a 65y/o female with a PMH of HTN, anxiety, sciatica, COPD and GERD presented with left sided upper and lower ext weakness and slurred speech. She states she went to bed feeling fine and woke up later in the night to go to the bathroom and noticed the weakness and facial droop. She went back to bed and woke up again in the morning with increased left sided weakness and slurred speech. She called her son and was brought to the ER. She denies feeling sick for the last few days. She states her BP has been running normal. She has occasional cough due to COPD but not coughing up sputum. Denies SOB or chest pain. No hx of CAD or prior CVA. ED work up - CT-head: Scattered small vessel ischemic changes with age indeterminate hypodense area in the right basal ganglia for which follow-up MRI is recommended as this could represent a subacute stroke - MRI-brain: Recent CVA in the right gu radiata and right external capsule without evidence of hemorrhagic transformation or mass effect. Prominent chronic small vessel ischemic changes are seen in the white. Labs: WBC 7.3 Plt 290 Cr: 1.11 Na: 140 K: 4.2 Trop (-) - COVID-19 negative Patient was given asa in the ED. Patient was noted to have elevated BP in the 200s and was given labetalol IV. Plan: discussed MRI findings with patient. Continue asa, add statin. Bedside swallow trial was done and patient was able to tolerate medications with water and soft foods. Denied any problems with swallowing. Patient stated that her speech has improved and also her left sided upper and lower ext weakness has gotten better. Patient is alert and oriented. Will order PT/OT, speech therapy. Echo and carotid U/S ordered. Patient admitted to ICU for closer monitoring, continue telemetry and neuro checks. Monitor BP closely, if greater than 220/120 then give labetalol prn. Monitor AM labs and imaging. Check lipid panel. Time spent for clinical assessment, reviewing labs and imaging, physical exam, management, decision making and documentation greater than 75 mins. Past Medical History Past Medical History: Anxiety, COPD and Hypertension Past Surgical History Surgical History: Appendectomy and Cholecystectomy Family History Family Medical History: Cancer Social History Does patient currently use any type of tobacco product: Yes Have you used tobacco products in the last 12 months: Yes Type of Tobacco Use: Cigarettes Does any household member use tobacco: No Alcohol Use: None Prescription drug monitoring program results: PDMP reviewed and no concerns identified Medications Home Medications: No Known Drug Allergies Allergy (Verified 11/24/20 10:09) CONTINUE taking the following medications carisoprodol 350 mg PO TID 11/24/20 [History] diazepam 5 mg PO TID 11/24/20 [History] hydrocodone-acetaminophen 1 tab PO BID 11/24/20 [History] lisinopril 10 mg PO BID 11/24/20 [History] omeprazole 20 mg PO DAILY 11/24/20 [History] Labs Result Diagrams: 11/25/20 04:05 11/25/20 04:05 Labs: Laboratory WBC 7.3 X10^3/uL (3.6-10.0) 11/24/20 10:36 RBC 3.81 X10^6/uL (3.5-5.4) 11/24/20 10:36 Hgb 12.7 g/dL (12.0-16.0) 11/24/20 10:36 Hct 37.5 % (36.0-47.0) 11/24/20 10:36 MCV 98.5 fL (80.0-100.0) 11/24/20 10:36 MCH 33.3 pg (27.0-34.0) 11/24/20 10:36 MCHC 33.8 g/dL (33.0-35.0) 11/24/20 10:36 RDW 15.0 % (11.6-16.5) 11/24/20 10:36 Plt Count 290 X10^3/uL (150.0-450.0) 11/24/20 10:36 MPV 7.6 fL (7.4-11.0) 11/24/20 10:36 Neut % (Auto) 74.6 % (42.0-75.0) 11/24/20 10:36 Lymph % (Auto) 19.3 % (21.0-51.0) L 11/24/20 10:36 [place] % (Auto) 4.6 % (0.0-13.0) 11/24/20 10:36 Eos % (Auto) 0.8 % (0.9-2.9) L 11/24/20 10:36 Baso % (Auto) 0.7 % (0.2-1.0) 11/24/20 10:36 Neut # (Auto) 5.4 x10^3/uL (2.2-4.8) H 11/24/20 10:36 Lymph # (Auto) 1.4 X10^3/uL (1.3-2.9) 11/24/20 10:36 [place] # (Auto) 0.3 x10^3/uL (0.3-0.8) 11/24/20 10:36 Eos # (Auto) 0.1 x10^3/uL (0.0-0.2) 11/24/20 10:36 Baso # (Auto) 0.1 X10^3/uL (0.0-0.1) 11/24/20 10:36 Absolute Nucleated RBC 0.1 /100WBC 11/24/20 10:36 Sodium 140 mmol/L (136-145) 11/24/20 10:36 Corrected Sodium 140 mmol/L (136-145) 11/24/20 10:36 Potassium 4.3 mmol/L (3.5-5.1) 11/24/20 10:36 Chloride 103 mmol/L (98-107) 11/24/20 10:36 Carbon Dioxide 30.9 mmol/L (21-32) 11/24/20 10:36 BUN 18 mg/dL (7-18) 11/24/20 10:36 Creatinine 1.11 mg/dL (0.55-1.02) H 11/24/20 10:36 Est GFR (MDRD) Af Amer > 60 (>60) 11/24/20 10:36 Est GFR (MDRD) Non-Af 53 (>60) L 11/24/20 10:36 Glucose 113 mg/dL (65-99) H 11/24/20 10:36 POC Glucose (mg/dL) 115 mg/dL (65-99) H 11/24/20 14:47 Calcium 8.6 mg/dL (8.5-10.1) 11/24/20 10:36 Corrected Calcium TNP 11/24/20 10:36 Total Bilirubin 0.30 mg/dL (0.2-1.0) 11/24/20 10:36 AST 17 Units/L (15-37) 11/24/20 10:36 ALT 13 Units/L (12-78) 11/24/20 10:36 Alkaline Phosphatase 104 Units/L (46-116) 11/24/20 10:36 Creatine Kinase 64 Units/L (26-192) 11/24/20 10:36 Troponin I < 0.02 ng/mL (0-1.5) 11/24/20 10:36 Total Protein 7.5 g/dL (6.4-8.2) 11/24/20 10:36 Albumin 3.4 g/dL (3.4-5.0) 11/24/20 10:36 Globulin 4.1 g/dL (2.5-4.5) 11/24/20 10:36 Albumin/Globulin Ratio 0.8 Ratio (1.1-2.1) L 11/24/20 10:36 Specimen Type Clean catch urine 11/24/20 10:58 Urine Color Yellow (YELLOW) 11/24/20 10:58 Urine Appearance Slightly hazy (CLEAR) 11/24/20 10:58 Urine pH 6.0 (5.0 - 8.0) 11/24/20 10:58 Ur Specific [place] 1.015 (1.000-1.030) 11/24/20 10:58 Urine Protein Negative (NEGATIVE) 11/24/20 10:58 Urine Glucose (UA) Negative (NEGATIVE) 11/24/20 10:58 Urine Ketones Negative (NEGATIVE) 11/24/20 10:58 Urine Occult Blood 3+ (NEGATIVE) 11/24/20 10:58 Urine Nitrite Negative (NEGATIVE) 11/24/20 10:58 Urine Bilirubin Negative (NEGATIVE) 11/24/20 10:58 Urine Urobilinogen Normal (NORMAL) 11/24/20 10:58 Ur Leukocyte Esterase 1+ (NEGATIVE) 11/24/20 10:58 Urine RBC 3-5 /HPF (0-3) A 11/24/20 10:58 Urine WBC 0-2 /HPF (0-5) 11/24/20 10:58 Ur Squamous Epith Cells Moderate /HPF (NEGATIVE) 11/24/20 10:58 Urine Bacteria Trace /HPF (NEGATIVE) 11/24/20 10:58 Ur Culture Indicated? No/not indicated 11/24/20 10:58 SARS CoV-2 RNA Rapid RENETTA Negative (NEGATIVE) 11/24/20 11:42 Review of Systems Constitutional: No Symptoms Reported Eyes: No Symptoms Reported ENT: No Symptoms Reported Respiratory: No Symptoms Reported Cardiovascular: No Symptoms Reported Gastrointestinal: No Symptoms Reported Genitourinary: No Symptoms Reported Musculoskeletal: Shoulder Pain and Arm Pain Skin: No Symptoms Reported Neurological: Weakness, Change in Speech and Other (facial droop ) Physical Exam Vital Signs: Temperature 98.3 F Pulse Rate [Left] 77 Pulse Rate 68 Respiratory Rate 18 Blood Pressure [Left Arm] 138/69 Blood Pressure [Right Arm] 196/84 Blood Pressure 170/83 O2 Sat by Pulse Oximetry 97 Oriented: Normal Eyes: Normal Ear: Normal Nose: Normal Throat: Normal Respiratory: Diminished Throughout Cardiovascular: Normal : Normal Auscultation: Bowel Sounds: Normal Palpation: Normal Tenderness: Normal Skin: Normal Musculoskeletal: Left (decreased motor strength 3/5 in left UE, sensation inta ct. Left Lower ext: 4/5 strength, sensation intact. Facial droop noted on the left side ), Arm and Leg Psychiatric: Normal Mood Description: Calm Affect: Normal Speech Pattern: Clear and Appropriate Assessment/Plan (1) Ischemic stroke: Status: Acute (2) Hemiparesis affecting left side as late effect of cerebrovascular accident (CVA): Status: Acute (3) copd: Status: Active (4) Accelerated essential hypertension: Status: Acute (5) HLD (hyperlipidemia): Qualifiers: Hyperlipidemia type: mixed hyperlipidemia Qualified Code(s): E78.2 - Mixed hyperlipidemia Status: Acute Review H&P Reviewed: Yes Patient was examined?: Yes
[2020-11-24] MEDS ORDERED: LIPITOR TAB 40 MG PO SCH (21:00)
[2020-11-24] MEDS: SOMA TAB 350 MG PO SCH (21:27)
[2020-11-24] MEDS: VALIUM PO SCH (21:28)
[2020-11-25 04:38] LABS: BASOPHILS % (AUTO) 0.6 % (0.2-1.0); EOSINOPHILS # (AUTO) 0.1 x10^3/uL (0.0-0.2); HEMATOCRIT 35.3 % (36.0-47.0); HEMOGLOBIN 12.1 g/dL (12.0-16.0); LYMPHOCYTES # (AUTO) 2.4 X10^3/uL (1.3-2.9); LYMPHOCYTES % (AUTO) 34.2 % (21.0-51.0); MEAN CORPUSCULAR HEMOGLOBIN 33.9 pg (27.0-34.0); MEAN CORPUSCULAR HGB CONC 34.2 g/dL (33.0-35.0); MEAN CORPUSCULAR VOLUME 99.1 fL (80.0-100.0); MEAN PLATELET VOLUME 7.8 fL (7.4-11.0); MONOCYTES # (AUTO) 0.3 x10^3/uL (0.3-0.8); NEUTROPHILS # (AUTO) 4.1 x10^3/uL (2.2-4.8); NEUTROPHILS % (AUTO) 58.2 % (42.0-75.0); PLATELET COUNT 274 X10^3/uL (150.0-450.0); RED BLOOD COUNT 3.57 X10^6/uL (3.5-5.4); RED CELL DISTRIBUTION WIDTH 15.3 % (11.6-16.5)
[2020-11-25 04:49] LABS: ALANINE AMINOTRANSFERASE 12 Units/L (12-78); ALBUMIN 3.2 g/dL (3.4-5.0); ALKALINE PHOSPHATASE 98 Units/L (46-116); ASPARTATE AMINO TRANSFERASE 13 Units/L (15-37); BLOOD UREA NITROGEN 21 mg/dL (7-18); CALCIUM 8.5 mg/dL (8.5-10.1); CARBON DIOXIDE 26.8 mmol/L (21-32); CHLORIDE 105 mmol/L (98-107); CHOLESTEROL 219 mg/dL (0-200); COR CA(FOR HYPOALB) 9.1 mg/dL (8.5-10.1); CREATININE 1.19 mg/dL (0.55-1.02); HDL CHOLESTEROL 55 mg/dL (40-60); SODIUM 141 mmol/L (136-145); TRIGLYCERIDES 89 mg/dL (0-150); eGFR NON BLACK RACES 49 (>60)
[2020-11-25] MEDS: VALIUM PO SCH ×2 (05:15→15:31)
[2020-11-25] MEDS: SOMA TAB 350 MG PO SCH ×2 (05:15→15:31)
[2020-11-25] MEDS ORDERED: NS 1000 ML 1,000 ML IV SCH (08:00)
[2020-11-25] MEDS ORDERED: LOVENOX INJ 40 MG SYR SC SCH (09:00)
--- NOTE | 2020-11-25 09:29 | PCM.PROG ---
Progress Note Progress Note for Day of Date of Exam: 11/25/20 Subjective Subjective: Patient seen at bedside. Patient reports increased left arm and leg weakness. Patient has also been coughing up more even with sips of water. She states she feels worse compared to yesterday. She denies productive cough. She is on 2L O2 with sats at 100%. She has also had a low grade fever, temp 100. Labs: WBC 7 Plt: 274 BUN/Cr: 1. Na: 141 K: 4.2 Plan: will repeat CT-head due to worsening weakness to rule out hemorrhagic conversion. Patient has been slightly hypotensive this morning. Continue NPO status till seen by speech therapy. CXR ordered to rule out pneumonia. PT/OT as tolerated. Echo and carotid U/S pending. Continue closer monitoring in the ICU with telemetry and neuro checks. Will add gentle hydration with NS. Contiue SCDs, will hold of on Lovenox DVT Ppx till CT results. Monitor AM labs and imaging. Time spent for clinical assessment, reviewing labs and imaging, physical exam, management, decision making and documentation greater than 75 mins. Past Medical Family Social History Past Med/Fam/Surg Hx: No changes since H&P Allergies: Allergies No Known Drug Allergies Allergy (Verified 11/24/20 10:09) Review of Systems ROS: No change since H&P Vital Signs and I&O's Vital Signs: Temperature 100.0 F Pulse Rate [Left] 77 Pulse Rate 77 Respiratory Rate 20 Blood Pressure [Left Arm] 138/69 Blood Pressure [Right Arm] 196/84 Blood Pressure 133/63 O2 Sat by Pulse Oximetry 98 Intake and Output: Intake & Output 11/22/20 11/23/20 11/24/20 11/25/20 23:59 23:59 23:59 23:59 Intake Total 800 / 800 0 / 0 Balance 800 / 800 0 / 0 Physical Exam Oriented: Normal Eyes: Normal Ear: Normal Nose: Normal Throat: Normal Respiratory: Generalized and Diminished Cardiovascular: Normal Auscultation: Bowel Sounds: Normal Tenderness: Normal Skin: Normal Musculoskeletal: Left (Left UE: worsened weakness compared to yesterday, 1/5 motor strength, hand stiff and fingers closed in a fist.Patient states she is not able to open it up. Left lower ext slightly weaker than prev exam, 3/5 motor strength. Sensation intact.), Arm and Leg Psychiatric: Normal Mood Description: Calm Affect: Normal Speech Pattern: Clear and Appropriate Laboratory and Diagnostics Result Diagrams: 11/25/20 04:05 11/25/20 04:05 Labs: Laboratory WBC 7.0 X10^3/uL (3.6-10.0) 11/25/20 04:05 RBC 3.57 X10^6/uL (3.5-5.4) 11/25/20 04:05 Hgb 12.1 g/dL (12.0-16.0) 11/25/20 04:05 Hct 35.3 % (36.0-47.0) L 11/25/20 04:05 MCV 99.1 fL (80.0-100.0) 11/25/20 04:05 MCH 33.9 pg (27.0-34.0) 11/25/20 04:05 MCHC 34.2 g/dL (33.0-35.0) 11/25/20 04:05 RDW 15.3 % (11.6-16.5) 11/25/20 04:05 Plt Count 274 X10^3/uL (150.0-450.0) 11/25/20 04:05 MPV 7.8 fL (7.4-11.0) 11/25/20 04:05 Neut % (Auto) 58.2 % (42.0-75.0) 11/25/20 04:05 Lymph % (Auto) 34.2 % (21.0-51.0) 11/25/20 04:05 [place] % (Auto) 5.0 % (0.0-13.0) 11/25/20 04:05 Eos % (Auto) 2.0 % (0.9-2.9) 11/25/20 04:05 Baso % (Auto) 0.6 % (0.2-1.0) 11/25/20 04:05 Neut # (Auto) 4.1 x10^3/uL (2.2-4.8) 11/25/20 04:05 Lymph # (Auto) 2.4 X10^3/uL (1.3-2.9) 11/25/20 04:05 [place] # (Auto) 0.3 x10^3/uL (0.3-0.8) 11/25/20 04:05 Eos # (Auto) 0.1 x10^3/uL (0.0-0.2) 11/25/20 04:05 Baso # (Auto) 0.0 X10^3/uL (0.0-0.1) 11/25/20 04:05 Absolute Nucleated RBC 0.0 /100WBC 11/25/20 04:05 Sodium 141 mmol/L (136-145) 11/25/20 04:05 Corrected Sodium TNP 11/25/20 04:05 Potassium 4.2 mmol/L (3.5-5.1) 11/25/20 04:05 Chloride 105 mmol/L (98-107) 11/25/20 04:05 Carbon Dioxide 26.8 mmol/L (21-32) 11/25/20 04:05 BUN 21 mg/dL (7-18) H 11/25/20 04:05 Creatinine 1.19 mg/dL (0.55-1.02) H 11/25/20 04:05 Est GFR (MDRD) Af Amer 59 (>60) 11/25/20 04:05 Est GFR (MDRD) Non-Af 49 (>60) L 11/25/20 04:05 Glucose 97 mg/dL (65-99) 11/25/20 04:05 POC Glucose (mg/dL) 137 mg/dL (65-99) H 11/24/20 21:14 Calcium 8.5 mg/dL (8.5-10.1) 11/25/20 04:05 Corrected Calcium 9.1 mg/dL (8.5-10.1) 11/25/20 04:05 Total Bilirubin 0.30 mg/dL (0.2-1.0) 11/25/20 04:05 AST 13 Units/L (15-37) L 11/25/20 04:05 ALT 12 Units/L (12-78) 11/25/20 04:05 Alkaline Phosphatase 98 Units/L (46-116) 11/25/20 04:05 Creatine Kinase 64 Units/L (26-192) 11/24/20 10:36 Troponin I < 0.02 ng/mL (0-1.5) 11/24/20 10:36 Total Protein 7.0 g/dL (6.4-8.2) 11/25/20 04:05 Albumin 3.2 g/dL (3.4-5.0) L 11/25/20 04:05 Globulin 3.8 g/dL (2.5-4.5) 11/25/20 04:05 Albumin/Globulin Ratio 0.8 Ratio (1.1-2.1) L 11/25/20 04:05 Triglycerides 89 mg/dL (0-150) 11/25/20 04:05 Cholesterol 219 mg/dL (0-200) H 11/25/20 04:05 LDL Cholesterol, Calc 146 mg/dL (0-100) H 11/25/20 04:05 HDL Cholesterol 55 mg/dL (40-60) 11/25/20 04:05 Cholesterol/HDL Ratio 4.0 (0.0-5.0) 11/25/20 04:05 Specimen Type Clean catch urine 11/24/20 10:58 Urine Color Yellow (YELLOW) 11/24/20 10:58 Urine Appearance Slightly hazy (CLEAR) 11/24/20 10:58 Urine pH 6.0 (5.0 - 8.0) 11/24/20 10:58 Ur Specific [place] 1.015 (1.000-1.030) 11/24/20 10:58 Urine Protein Negative (NEGATIVE) 11/24/20 10:58 Urine Glucose (UA) Negative (NEGATIVE) 11/24/20 10:58 Urine Ketones Negative (NEGATIVE) 11/24/20 10:58 Urine Occult Blood 3+ (NEGATIVE) 11/24/20 10:58 Urine Nitrite Negative (NEGATIVE) 11/24/20 10:58 Urine Bilirubin Negative (NEGATIVE) 11/24/20 10:58 Urine Urobilinogen Normal (NORMAL) 11/24/20 10:58 Ur Leukocyte Esterase 1+ (NEGATIVE) 11/24/20 10:58 Urine RBC 3-5 /HPF (0-3) A 11/24/20 10:58 Urine WBC 0-2 /HPF (0-5) 11/24/20 10:58 Ur Squamous Epith Cells Moderate /HPF (NEGATIVE) 11/24/20 10:58 Urine Bacteria Trace /HPF (NEGATIVE) 11/24/20 10:58 Ur Culture Indicated? No/not indicated 11/24/20 10:58 SARS CoV-2 RNA Rapid RENETTA Negative (NEGATIVE) 11/24/20 11:42 Plan (1) Ischemic stroke: Status: Acute (2) Hemiparesis affecting left side as late effect of cerebrovascular accident (CVA): Status: Acute (3) copd: Status: Active (4) Accelerated essential hypertension: Status: Acute (5) HLD (hyperlipidemia): Status: Acute Qualifiers: Hyperlipidemia type: mixed hyperlipidemia Qualified Code(s): E78.2 - Mixed hyperlipidemia
--- NOTE | 2020-11-25 10:11 | CT ---
HISTORYWORSENING LEFT SIDED WEAKNESS, RECENT CVASTUDYBRAIN W/O CONCOMPARISONHead CT 11/24/2020TECHNIQUEMultiple CT axial images of the head were obtained without IV contrast. Coronal and sagittal images were reconstructed. Dose reduction techniques included Automated Exposure Control (AEC) and adjustment of mA and kV.FINDINGSThere has been a usual evolution of the right basal ganglia lacunar infarct. This extends superiorly to involve the gu radiata. It is stable in size but is less dense and more sharply demarcated.No hemorrhage or significant mass.Age-related findings include central and cortical atrophy with abnormal signal in the periventricular white matter, most likely the micro-ischemic changes of aging.Cerebellar tonsils are at an appropriate level. No mass or midline shift. No new findings.IMPRESSION1. Usual evolution of right basal ganglia lacunar infarct2. No hemorrhage or significant changeElectronically signed by: Garrett Potter (November 25, 2020 10:09:03)
--- NOTE | 2020-11-25 10:12 | RAD ---
HISTORYCOUGH, POSSIBLE ASPIRATIONSTUDYCHEST, 1 VIEWCOMPARISONNoneFINDINGSThe lungs are clear. No pneumothorax or significant effusion.Heart size is normal.Bones are unremarkable.EKG leads are noted.IMPRESSION1. No significant abnormalityElectronically signed by: Garrett Potter (November 25, 2020 10:10:33)
[2020-11-25] MEDS: ZOSYN VIAL 3.375 GRAMS 3.375 G in NS 100 ML IV + SPIKE MINIBAG* 100 ML IV SCH ×2 (11:01→15:00)
--- NOTE | 2020-11-25 11:28 | VAS ---
HISTORY:Acute CVAStudy: Bilateral Carotid UltrasoundComparison:NoneTechnique: Multiple gee scale and color flow Doppler images of the right and left carotid arterial system were obtained. The vertebral arterial system was evaluated as well.Findings:Normal color flow Doppler is seen throughout the right and left carotid arterial system. There is atherosclerotic plaque present at the bilateral carotid bifurcations with luminal narrowing. Peak systolic velocity in the right ICA is 164.7 cm/sec. Peak systolic velocity in the left ICA is 174 cm/sec. The right ICA/CCA ratio is 1.4. The left ICA/CCA ratio is1.1. There is antegrade flow visualized in the right vertebral artery. Left vertebral artery not visualized.IMPRESSION:Atherosclerotic plaque at the bilateral carotid bulbs with luminal narrowing and elevated velocities suggesting moderate stenosis in the range of 50-69 % for both right and left ICAs.Nonvisualization of the left vertebral artery. Consider CTA for further evaluation if indicated.Antegrade flow in the right vertebral artery.Electronically signed by: EMMY VEGA (November 25, 2020 11:26:52)
[2020-11-25] MEDS: PriLOSEC PO SCH (13:24)
[2020-11-25] MEDS: NORCO 10/325 TAB PO SCH (13:24)
[2020-11-25] MEDS: ASPIRIN PO SCH (13:24)
[2020-11-25] MEDS: DUONEB 0.5 MG/3 MG (3 mL) NEB SCH ×2 (13:36)
[2020-11-25] MEDS ORDERED: OFIRMEV IV 1000 MG VIAL 1,000 MG/100 ML VIAL IV ONE ×2 (15:53→15:55)
[2020-11-25 16:10] VITALS: BP 135/60
--- NOTE | 2020-11-25 16:33 | W.DIS.FURT ---
Summary of Discharge Discharge Summary of Date Date of Exam: 11/25/20 Admission Date Date of Admission: 11/24/20 Admission Diagnosis Hospital Course: Ms. Shah is a 65y/o female with a PMH of HTN, anxiety, sciatica, COPD and GERD presented with left sided upper and lower ext weakness and slurred speech. She states she went to bed feeling fine and woke up later in the night to go to the bathroom and noticed the weakness and facial droop. She went back to bed and woke up again in the morning with increased left sided weakness and slurred speech. She called her son and was brought to the ER. She denies feeling sick for the last few days. She states her BP has been running normal. She has occasional cough due to COPD but not coughing up sputum. Denies SOB or chest pain. No hx of CAD or prior CVA. In the ER, patient was noted to have elevated BP in the 200s. CT-head showed hypodense area in the right basal ganglia of indeterminate age and MRI was recommended. MRI showed recent CVA in the right gu radiata and right external capsule without evidence of hemorrhagic transformation. She did recieve IV labetolol for elevated BP and it improved to SBP in 160s. Patient was admitted to ICU with telemetry and neuro checks. She wa s started on asa, statin and BP was monitored closely. Patient had initial bed side swallow eval on admission and she was able to take medications, eat soft foods and drink sips of water. Speech therapy, PT and OT were consulted. Patient's speech and weakness had improved compared to initial presentation. The next morning, patient reported worsening left sided upper and lower ext weakness. Patient's speech was normal but on exam her left sided upper ext was worse compared to the evening prior. CT-head was done which showed no hemorrhagic transformation but usual evolution of acute CVA. Patient was also noted to be coughing with small sips of water. Speech therapy recommended NPO and further evaluation using fiber-optic testing. Patient's vital signs remained stable and she was alert and oriented. Due to patient's weakness getting worse, it was decided that patient would benefit from being in a stroke unit with neurology evaluation. This was discussed with patient and she agreed to be t ransferred. Patient was transferred to [facility]. Hand-off was given to hospitalist mortgage professional in [facility]. Time spent for clinical assessment, reviewing labs and imaging, physical exam, management, decision making and documentation greater than 75 mins. Vital Signs: Vital Signs (72 hours) 11/24/20 10:05 11/24/20 10:15 11/24/20 10:30 Temperature 98.5 F Pulse Rate 82 74 76 Pulse Rate [Left] Respiratory Rate 17 Blood Pressure 215/107 Blood Pressure [Right Arm] O2 Sat by Pulse Oximetry 93 L 96 95 11/24/20 10:31 11/24/20 10:45 11/24/20 10:57 Temperature Pulse Rate 76 69 67 Pulse Rate [Left] Respiratory Rate Blood Pressure 200/88 215/98 Blood Pressure [Right Arm] O2 Sat by Pulse Oximetry 97 95 97 11/24/20 11:00 11/24/20 11:15 11/24/20 11:30 Temperature Pulse Rate 70 68 68 Pulse Rate [Left] 68 Respiratory Rate Blood Pressure 188/88 175/84 Blood Pressure [Right Arm] 175/84 O2 Sat by Pulse Oximetry 97 96 96 11/24/20 11:40 11/24/20 11:42 11/24/20 11:45 Temperature Pulse Rate 64 68 Pulse Rate [Left] 68 Respiratory Rate Blood Pressure 190/88 Blood Pressure [Right Arm] 190/88 O2 Sat by Pulse Oximetry 94 L 95 95 11/24/20 11:50 11/24/20 12:00 11/24/20 12:01 Temperature Pulse Rate 66 66 Pulse Rate [Left] Respiratory Rate Blood Pressure 192/88 194/91 Blood Pressure [Right Arm] O2 Sat by Pulse Oximetry 95 95 11/24/20 12:10 11/24/20 12:15 11/24/20 12:20 Temperature Pulse Rate 66 68 70 Pulse Rate [Left] Respiratory Rate Blood Pressure 180/86 182/87 Blood Pressure [Right Arm] O2 Sat by Pulse Oximetry 95 92 L 96 11/24/20 12:30 11/24/20 12:40 11/24/20 12:45 Temperature Pulse Rate 69 65 66 Pulse Rate [Left] Respiratory Rate Blood Pressure 179/89 168/82 Blood Pressure [Right Arm] O2 Sat by Pulse Oximetry 95 95 96 11/24/20 12:50 11/24/20 13:00 11/24/20 13:10 Temperature Pulse Rate 67 66 68 Pulse Rate [Left] Respiratory Rate Blood Pressure 171/83 169/85 166/77 Blood Pressure [Right Arm] O2 Sat by Pulse Oximetry 96 96 97 11/24/20 13:15 11/24/20 13:19 11/24/20 13:20 Temperature Pulse Rate 71 68 Pulse Rate [Left] Respiratory Rate Blood Pressure 159/79 Blood Pressure [Right Arm] O2 Sat by Pulse Oximetry 96 99 11/24/20 13:30 11/24/20 13:34 11/24/20 13:40 Temperature Pulse Rate 81 66 68 Pulse Rate [Left] Respiratory Rate Blood Pressure 183/81 174/79 Blood Pressure [Right Arm] O2 Sat by Pulse Oximetry 98 96 11/24/20 13:45 11/24/20 13:50 11/24/20 14:00 Temperature Pulse Rate 69 66 67 Pulse Rate [Left] Respiratory Rate Blood Pressure 172/82 175/87 Blood Pressure [Right Arm] O2 Sat by Pulse Oximetry 94 L 97 96 11/24/20 14:52 11/24/20 14:55 11/24/20 15:00 Temperature 98.3 F Pulse Rate 74 Pulse Rate [Left] 77 Respiratory Rate 25 H 25 H 19 Blood Pressure 196/84 Blood Pressure [Right Arm] 196/84 O2 Sat by Pulse Oximetry 96 96 11/24/20 15:52 11/24/20 16:00 11/24/20 17:00 Temperature Pulse Rate 68 76 Pulse Rate [Left] Respiratory Rate 25 H 18 20 Blood Pressure 170/83 173/77 Blood Pressure [Right Arm] O2 Sat by Pulse Oximetry 97 99 11/24/20 18:00 11/24/20 19:00 11/24/20 20:00 Temperature 98 F Pulse Rate 71 69 64 Pulse Rate [Left] Respiratory Rate 16 24 20 Blood Pressure 127/59 152/70 152/70 Blood Pressure [Right Arm] O2 Sat by Pulse Oximetry 96 96 96 11/24/20 21:00 11/24/20 21:27 11/24/20 22:00 Temperature Pulse Rate 64 68 Pulse Rate [Left] Respiratory Rate 21 22 22 Blood Pressure 138/65 99/49 Blood Pressure [Right Arm] O2 Sat by Pulse Oximetry 97 96 11/24/20 22:27 11/24/20 23:00 11/25/20 00:00 Temperature 97.8 F Pulse Rate 61 66 Pulse Rate [Left] Respiratory Rate 16 19 16 Blood Pressure 96/51 93/51 Blood Pressure [Right Arm] O2 Sat by Pulse Oximetry 97 100 11/25/20 01:00 11/25/20 02:00 11/25/20 03:00 Temperature Pulse Rate 63 61 63 Pulse Rate [Left] Respiratory Rate 16 14 16 Blood Pressure 91/63 105/53 112/56 Blood Pressure [Right Arm] O2 Sat by Pulse Oximetry 96 96 96 11/25/20 04:00 11/25/20 05:00 11/25/20 06:00 Temperature 98 F Pulse Rate 70 66 68 Pulse Rate [Left] Respiratory Rate 20 30 H 24 Blood Pressure 150/70 112/59 115/56 Blood Pressure [Right Arm] O2 Sat by Pulse Oximetry 97 97 98 11/25/20 07:00 11/25/20 08:00 11/25/20 09:00 Temperature 100.0 F H Pulse Rate 72 75 77 Pulse Rate [Left] Respiratory Rate 31 H 20 20 Blood Pressure 122/58 122/59 133/63 Blood Pressure [Right Arm] O2 Sat by Pulse Oximetry 96 98 98 11/25/20 10:01 11/25/20 11:00 11/25/20 12:00 Temperature 98.9 F Pulse Rate 79 78 75 Pulse Rate [Left] Respiratory Rate 20 20 20 Blood Pressure 124/60 125/64 138/60 Blood Pressure [Right Arm] O2 Sat by Pulse Oximetry 97 99 98 11/25/20 13:00 11/25/20 13:37 11/25/20 14:00 Temperature Pulse Rate 78 78 Pulse Rate [Left] Respiratory Rate 22 32 H Blood Pressure 128/60 96/49 Blood Pressure [Right Arm] O2 Sat by Pulse Oximetry 99 98 94 L 11/25/20 15:00 11/25/20 16:00 Temperature Pulse Rate 76 Pulse Rate [Left] Respiratory Rate 26 H Blood Pressure 104/51 135/60 Blood Pressure [Right Arm] O2 Sat by Pulse Oximetry 98 Labs: Laboratory Last Values WBC 7.0 X10^3/uL (3.6-10.0) 11/25/20 04:05 RBC 3.57 X10^6/uL (3.5-5.4) 11/25/20 04:05 Hgb 12.1 g/dL (12.0-16.0) 11/25/20 04:05 Hct 35.3 % (36.0-47.0) L 11/25/20 04:05 MCV 99.1 fL (80.0-100.0) 11/25/20 04:05 MCH 33.9 pg (27.0-34.0) 11/25/20 04:05 MCHC 34.2 g/dL (33.0-35.0) 11/25/20 04:05 RDW 15.3 % (11.6-16.5) 11/25/20 04:05 Plt Count 274 X10^3/uL (150.0-450.0) 11/25/20 04:05 MPV 7.8 fL (7.4-11.0) 11/25/20 04:05 Neut % (Auto) 58.2 % (42.0-75.0) 11/25/20 04:05 Lymph % (Auto) 34.2 % (21.0-51.0) 11/25/20 04:05 [place] % (Auto) 5.0 % (0.0-13.0) 11/25/20 04:05 Eos % (Auto) 2.0 % (0.9-2.9) 11/25/20 04:05 Baso % (Auto) 0.6 % (0.2-1.0) 11/25/20 04:05 Neut # (Auto) 4.1 x10^3/uL (2.2-4.8) 11/25/20 04:05 Lymph # (Auto) 2.4 X10^3/uL (1.3-2.9) 11/25/20 04:05 [place] # (Auto) 0.3 x10^3/uL (0.3-0.8) 11/25/20 04:05 Eos # (Auto) 0.1 x10^3/uL (0.0-0.2) 11/25/20 04:05 Baso # (Auto) 0.0 X10^3/uL (0.0-0.1) 11/25/20 04:05 Absolute Nucleated RBC 0.0 /100WBC 11/25/20 04:05 Sodium 141 mmol/L (136-145) 11/25/20 04:05 Corrected Sodium TNP 11/25/20 04:05 Potassium 4.2 mmol/L (3.5-5.1) 11/25/20 04:05 Chloride 105 mmol/L (98-107) 11/25/20 04:05 Carbon Dioxide 26.8 mmol/L (21-32) 11/25/20 04:05 BUN 21 mg/dL (7-18) H 11/25/20 04:05 Creatinine 1.19 mg/dL (0.55-1.02) H 11/25/20 04:05 Est GFR (MDRD) Af Amer 59 (>60) 11/25/20 04:05 Est GFR (MDRD) Non-Af 49 (>60) L 11/25/20 04:05 Glucose 97 mg/dL (65-99) 11/25/20 04:05 POC Glucose (mg/dL) 137 mg/dL (65-99) H 11/24/20 21:14 Calcium 8.5 mg/dL (8.5-10.1) 11/25/20 04:05 Corrected Calcium 9.1 mg/dL (8.5-10.1) 11/25/20 04:05 Total Bilirubin 0.30 mg/dL (0.2-1.0) 11/25/20 04:05 AST 13 Units/L (15-37) L 11/25/20 04:05 ALT 12 Units/L (12-78) 11/25/20 04:05 Alkaline Phosphatase 98 Units/L (46-116) 11/25/20 04:05 Creatine Kinase 64 Units/L (26-192) 11/24/20 10:36 Troponin I < 0.02 ng/mL (0-1.5) 11/24/20 10:36 Total Protein 7.0 g/dL (6.4-8.2) 11/25/20 04:05 Albumin 3.2 g/dL (3.4-5.0) L 11/25/20 04:05 Globulin 3.8 g/dL (2.5-4.5) 11/25/20 04:05 Albumin/Globulin Ratio 0.8 Ratio (1.1-2.1) L 11/25/20 04:05 Triglycerides 89 mg/dL (0-150) 11/25/20 04:05 Cholesterol 219 mg/dL (0-200) H 11/25/20 04:05 LDL Cholesterol, Calc 146 mg/dL (0-100) H 11/25/20 04:05 HDL Cholesterol 55 mg/dL (40-60) 11/25/20 04:05 Cholesterol/HDL Ratio 4.0 (0.0-5.0) 11/25/20 04:05 Specimen Type Clean catch urine 11/24/20 10:58 Urine Color Yellow (YELLOW) 11/24/20 10:58 Urine Appearance Slightly hazy (CLEAR) 11/24/20 10:58 Urine pH 6.0 (5.0 - 8.0) 11/24/20 10:58 Ur Specific [place] 1.015 (1.000-1.030) 11/24/20 10:58 Urine Protein Negative (NEGATIVE) 11/24/20 10:58 Urine Glucose (UA) Negative (NEGATIVE) 11/24/20 10:58 Urine Ketones Negative (NEGATIVE) 11/24/20 10:58 Urine Occult Blood 3+ (NEGATIVE) 11/24/20 10:58 Urine Nitrite Negative (NEGATIVE) 11/24/20 10:58 Urine Bilirubin Negative (NEGATIVE) 11/24/20 10:58 Urine Urobilinogen Normal (NORMAL) 11/24/20 10:58 Ur Leukocyte Esterase 1+ (NEGATIVE) 11/24/20 10:58 Urine RBC 3-5 /HPF (0-3) A 11/24/20 10:58 Urine WBC 0-2 /HPF (0-5) 11/24/20 10:58 Ur Squamous Epith Cells Moderate /HPF (NEGATIVE) 11/24/20 10:58 Urine Bacteria Trace /HPF (NEGATIVE) 11/24/20 10:58 Ur Culture Indicated? No/not indicated 11/24/20 10:58 SARS CoV-2 RNA Rapid RENETTA Negative (NEGATIVE) 11/24/20 11:42 Reason For Visit: TIA Discharge Date Discharge Date: 11/25/20 Discharge Diagnosis All Active Problems (Updated 11/27/20 @ 13:48 by Britney Wallace) HLD (hyperlipidemia) (Acute) Accelerated essential hypertension (Acute) Hemiparesis affecting left side as late effect of cerebrovascular accident (CVA) (Acute) Ischemic stroke (Acute) copd (Active) Plan of Treatment: Continue with present treatment and follow up plan. Pt is to keep follow up appointment as instructed and take medications as ordered. Discharge Medications Discharge Medications: No Known Drug Allergies Allergy (Verified 11/24/20 10:09) CONTINUE taking the following medications carisoprodol 350 mg PO TID 11/24/20 [History] diazepam 5 mg PO TID 11/24/20 [History] hydrocodone-acetaminophen 1 tab PO BID 11/24/20 [History] lisinopril 10 mg PO BID 11/24/20 [History] omeprazole 20 mg PO DAILY 11/24/20 [History] Discharge Disposition Discharge Disposition: [facility] Discharge Condition: Stable Discharge Plan Discharge Plan Hospital Course: Ms. Shah is a 65y/o female with a PMH of HTN, anxiety, sciatica, COPD and GERD presented with left sided upper and lower ext weakness and slurred speech. She states she went to bed feeling fine and woke up later in the night to go to the bathroom and noticed the weakness and facial droop. She went back to bed and woke up again in the morning with increased left sided weakness and slurred speech. She called her son and was brought to the ER. She denies feeling sick for the last few days. She states her BP has been running normal. She has occasional cough due to COPD but not coughing up sputum. Denies SOB or chest pain. No hx of CAD or prior CVA. In the ER, patient was noted to have elevated BP in the 200s. CT-head showed hypodense area in the right basal ganglia of indeterminate age and MRI was recommended. MRI showed recent CVA in the right gu radiata and right external capsule without evidence of hemorrhagic transformation. She did recieve IV labetolol for elevated BP and it improved to SBP in 160s. Patient was admitted to ICU with telemetry and neuro checks. She was started on asa, statin and BP was monitored closely. Patient had initial bed side swallow eval on admission and she was able to take medications, eat soft foods and drink sips of water. Speech therapy, PT and OT were consulted. Patient's speech and weakness had improved compared to initial presentation. The next morning, patient reported worsening left sided upper and lower ext weakness. Patient's speech was normal but on exam her left sided upper ext was worse compared to the evening prior. CT-head was done which showed no hemorrhagic transformation but usual evolution of acute CVA. Patient was also noted to be coughing with small sips of water. Speech therapy recommended NPO and further evaluation using fiber-optic testing. Patient's vital signs remained stable and she was alert and oriented. Due to patient's weakness getting worse, it was decided that patient would benefit from being in a stroke unit with neurology evaluation. This was discussed with patient and she agreed to be transferred. Patient was transferred to [facility]. Hand-off was given to hospitalist mortgage professional in [facility]. Time spent for clinical assessment, reviewing labs and imaging, physical exam, management, decision making and documentation greater than 75 mins. Patient Disposition: XFER [id number] HOSP Condition: Stable Health Concerns: Post Hospitalization: new medications and changes needed to prevent readmission or further decline. Pt educated and given instructions on all concerns. Plan of Treatment: Continue with present treatment and follow up plan. Pt is to keep follow up appointment as instructed and take medications as ordered. Prescriptions: No Action carisoprodol 350 mg tablet 350 mg PO TID RF: 0 hydrocodone-acetaminophen 10-325 mg tablet 1 tab PO BID RF: 0 lisinopril 10 mg tablet 10 mg PO BID RF: 0 omeprazole 20 mg capsule,delayed release(DR/EC) 20 mg PO DAILY RF: 0 diazepam 5 mg tablet 5 mg PO TID RF: 0 Orders to Discharge Patient Discharge Orders: Discharge by Transfer to Outside Facility (Routine); Ordered 11/25/20 Ordered By: Britney Wallace Follow ups/Referrals Follow ups/Referrals: NFD,None [Primary Care Provider] - 1 WEEK
[2020-11-25] MEDS ORDERED: ZESTRIL TAB 10 MG PO SCH (21:00)
== END 2020-11-25 16:14 | disposition short-term general hospital (02) | DRG 65 ==
LOC: ER 10:04 → ICU 13:51
PROVIDERS: ADMIT Internal Medicine; ATTEND Internal Medicine
DX: Z20.822 Contact with and (suspected) exposure to COVID-19; K21.9 Gastro-esophageal reflux disease without esophagitis; E78.2 Mixed hyperlipidemia; J44.9 Chronic obstructive pulmonary disease, unspecified; F41.8 Other specified anxiety disorders; I69.354 Hemiplegia and hemiparesis following cerebral infarction affecting left non-dominant side; I10 Essential (primary) hypertension; I63.89 Other cerebral infarction